=== PATIENT | male | born 1955 | race Caucasian/White ===

== ENCOUNTER 2023-09-02 08:35 | Emergency (ER) | payer OTHER, SELFPAY ==
[2023-09-02 08:48] VITALS: BP 110/60; PULSE 62; RESP 16; TEMP 37.8; O2SAT 98
--- NOTE | 2023-09-02 09:38 | ED.URI ---
HPI - URI/Sore Throat General Chief Complaint: Upper Respiratory Infection Stated Complaint: throat hurts,fever Time Seen by Provider: 09/02/23 09:28 Source: patient and RN notes reviewed Mode of arrival: ambulatory Limitations: no limitations History of Present Illness HPI Narrative: Patient presents today complaining of a 2 day history of sore throat and fever up to 100.8 with mild cough. Denies congestion, rhinorrhea, or any additional symptoms. Currently rates his pain 5/10 and has been taking Tylenol and guaifenesin with mild relief. He has not been vaccinated against COVID-19. Related Data Home Medications Medication Instructions Recorded Confirmed guaifenesin 600 mg tablet, 600 mg PO Q12H 05/11/22 09/02/23 extended release 12 hr loratadine 10 mg tablet 10 mg PO DAILY 05/11/22 09/02/23 multivitamin 1 tablet PO DAILY 05/11/22 09/02/23 omeprazole 20 mg tablet,delayed 20 mg PO BID 08/09/22 09/02/23 release Allergies Allergy/AdvReac Type Severity Reaction Status Date / Time Tetanus Vaccines and Toxoid Allergy Severe Anaphylaxis Verified 09/02/23 08:47 Penicillins Allergy Unknown Rash Verified 09/02/23 08:47 caffeine AdvReac Mild Unknown Verified 09/02/23 08:47 ibuprofen AdvReac Mild Palpitation Verified 09/02/23 08:47 s Milk Containing Products AdvReac Mild Abdominal Verified 09/02/23 08:47 (Dairy) Pain [Milk Containing Products] cinnamon AdvReac Unknown Blister Verified 09/02/23 08:47 gluten AdvReac Mild Diarrhea Uncoded 09/02/23 08:47 Review of Systems Review of Systems: CONSTITUTIONAL: Denies body aches, chills, or sweats.+ fever EYES: Denies visual changes, redness, or discharge. ENT: Denies rhinorrhea, congestion, or otalgia.+ sore throat CARDIOVASCULAR: Denies chest pain, palpitations, or edema. RESPIRATORY: Denies cough or dyspnea. GASTROINTESTINAL: Denies abdominal pain, nausea, vomiting, or diarrhea. GENITOURINARY: Denies dysuria or hematuria. SKIN: Denies rash, itching, or wounds. MUSCULOSKELETAL: Denies back pain, joint pain, or myalgia. NEUROLOGIC: Denies headache, numbness, tingling, or weakness. PSYCH: Denies depression or anxiety. [facility] Surgical History Surgical History H/O colonoscopy 2016, repeat 10 years History of tonsillectomy (1962) Hx of cholecystectomy (2011) Family History Family History Father Heart disease Mother Heart disease Liver cancer Grandparent Acute myocardial infarction Heart disease Grandparent Heart disease Acute myocardial infarction Social History Social History Smoking status: Never smoker Alcohol intake: never Substance use: never Living arrangements: with family Occupation/Education: occupation Additional occupation/education comments: teacher Agree to blood products: Yes Comments At time of signature, I have reviewed and agree with nursing past medical, surgical, social and family history unless otherwise noted. Please see nursing chart for further information. There is no relevant family history pertinent to the presenting complaint Exam Narrative: GENERAL: Well-appearing, well-nourished, and in no acute distress. HEAD: Normocephalic, atraumatic. EYES: EOMI. No redness or drainage. Conjunctivae normal. ENT: Mucous membranes pink and moist. Nares clear. No rhinorrhea. TMs normal bilaterally. Throat normal. Uvula midline. NECK: Normal AROM. Supple. No lymphadenopathy. CHEST: No respiratory distress. Clear to auscultation. HEART: Regular rate and rhythm. No murmur appreciated. EXTREMITIES: Normal range of motion. No edema. SKIN: Warm, dry, no rash. Capillary refill normal. Normal skin turgor. NEURO: No focal deficits. Alert and oriented x3. Gait steady. PSYCH: Normal affect. No signs of depression or anxiety.
== END 2023-09-02 09:45 | disposition home or self-care (01) ==
PROVIDERS: Emergency Provider Nurse Practitioner; PCP Family Medicine Adolescent Medicine
DX: U07.1 COVID-19 (principal)
CPT/HCPCS: 87081; 87426; 87804; 87880; 99213; C9803; G0463